=== PATIENT | female | born 1985 | race Caucasian/White ===

== ENCOUNTER → 2016-09-08 | Outpatient (CLI) | payer OTHER ==
--- NOTE | 2016-09-08 12:42 | REP ---
Clinical: Pelvic pain . Technique: Transabdominal pelvic ultrasound followed by transvaginal examination for better evaluation of the endometrium and adnexa with color Doppler evaluation of the ovaries. Findings: Bladder is unremarkable and measures 6.3 x 4.9 x 2.5 cm . Normal anteverted uterus measures 7.0 x 3.4 x 4.0 cm . The endometrial complex measures 8.2 mm thickness. No discrete uterine or endometrial abnormalities are appreciated. Bilateral ovaries are normal in appearance and vascularity without evidence for torsion. Right ovary measures 2.5 x 1.5 x 1.4 cm ; R I = 0.70 . Left ovary measures 3.3 x 1.8 x 2.0 cm ; R I = 0.61 . No pelvic free fluid. . Impression: Normal anteverted uterus and ovaries. No free fluid. No torsion. Signed by Zeus Encinas MD 09/08/2016 12:33 P
== END ==
LOC: M SMT 09:51
PROVIDERS: ATTEND Advanced Practice Midwife
DX: R10.2 Pelvic and perineal pain (principal)

== ENCOUNTER → 2017-06-26 | Outpatient (REF) | payer OTHER | LOC: M LAB REF 15:23 | DX: J11.1 Influenza due to unidentified influenza virus with other respiratory manifestations (principal) ==